=== PATIENT | female | born 1965 | race Caucasian/White ===

== ENCOUNTER 2017-04-23 04:20 | Emergency (ER) | payer SELFPAY ==
[2017-04-23 05:21] LABS: BASOPHIL % 0.2 % (0-2)
[2017-04-23 05:25] LABS: PLATELET COUNT 115 x10^3mcL (130-400); RED CELL DISTRIBUTION WIDTH 14.9 % (11.5-14.5)
[2017-04-23 05:30] LABS: CALCIUM 8.3 mg/dL (8.5-10.1); CARBON DIOXIDE 19.7 mmol/L (21-32); CHLORIDE SERUM 97 mmol/L (98-107); CREATININE SERUM 0.9 mg/dL (0.6-1.0); GFR1 > 60 mL/min; GLUCOSE SERUM 105 mg/dL (74-106); POTASSIUM SERUM 4.2 mmol/L (3.5-5.1); SODIUM SERUM 131 mmol/L (136-145)
[2017-04-23 05:35] LABS: ALKALINE PHOSPHATASE 140 U/L (46-116); ALT/SGPT 31 U/L (14-59); AST/SGOT 40 U/L (15-37); BILIRUBIN TOTAL 1.2 mg/dL (0.20-1.00); CHOLESTEROL 169 mg/dL (<200)
[2017-04-23 05:41] LABS: ALBUMIN 2.1 g/dL (3.4-5.0); TOTAL PROTEIN, SERUM 5.7 g/dL (6.4-8.2)
[2017-04-23 06:57] LABS: microscopic required? NO
[2017-04-23 07:29] LABS: UA SPECIFIC GRAVITY 1.025 (1.005-1.035); urine erythrocyte NEGATIVE (NEGATIVE)
[2017-04-23 07:30] LABS: AMPHETAMINE QUAL UR NONE DETECTED (NEG <=1000)
[2017-04-23 11:25] VITALS: BP 102/79
== END 2017-04-23 11:25 | disposition home or self-care (01) ==
LOC: ED 04:20
PROVIDERS: Emergency Medicine
DX: G93.41 Metabolic encephalopathy (principal); F79 Unspecified intellectual disabilities; I10 Essential (primary) hypertension; E46 Unspecified protein-calorie malnutrition; F10.20 Alcohol dependence, uncomplicated; I45.10 Unspecified right bundle-branch block; F03.90 Unspecified dementia, unspecified severity, without behavioral disturbance, psychotic disturbance, mood disturbance, and anxiety; Z88.0 Allergy status to penicillin; Z91.419 Personal history of unspecified adult abuse
CPT/HCPCS: 83880; G0480; J3411; J3475; J3490; J7030; Q0092